=== PATIENT | female | born 1925 | race Caucasian/White ===

== ENCOUNTER → 2017-01-03 | Outpatient (CLI) | payer MEDICARE, BC ==
[~2017-01-03] MED LIST: BACTRIM DS TABL1 TA1 PO; BP PILL; CLONAZEPAM0.5 MG PO; DITROPAN XL10 MG PO; HYDROCODON-ACE1 EAC9 PO; INDERAL20 MG PO; LIPITOR PO; LIPITOR20 MG PO; MULTIVITAMIN1 UDCAP PO; REMERON SOLTAB15 M1 PO; WELLBUTRIN SR150 M1 PO
--- NOTE | ~2017-01-03 | CR278 ---
[facility] A Service of [facility] & [facility] RADIOLOGY TEXT RESULTS PATIENT: KUSHAL GOODWIN LOCATION: [facility] : [birth year] UNIT #: [id number] AGE: [address]: Samantha Ellis MD SEX: F ORDER DR: [id number] [facility] [address]. [place], [place] [address] [id number] O MR#: [id number] Acc #: [id number] NAME: KUSHAL GOODWIN : 1925 SEX: F STUDY DATE/TIME: 01/03/2017 15:17 UNIT: [facility] ROOM: STUDY DESCRIPTION: CR Wrist 2 View Lt Attending Physician: Samantha Ellis M.D. Referring Physician: Samantha Ellis M.D. Ordering Physician: Samantha Ellis M.D. Primary Care Physician: Samantha Ellis M.D. MEDICAL IMAGING REPORT This report is preliminary unless electronic signature is present EXAM Left wrist INDICATION Cellulitis of the left hand. Swelling and redness for 2 weeks. FINDINGS Three views of the left wrist without comparison. There is some generalized soft tissue swelling over the dorsum of the wrist. There is no fracture or dislocation. There is significant osteoarthritis of the wrist particularly along the radial margin. IMPRESSION 1. Generalized soft tissue swelling at the wrist. 2. 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 Dictated by... Pito Desai M.D. THIS IS AN ELECTRONICALLY VERIFIED REPORT Pito Desai M.D. at 01/04/2017 2:53 PM Luis TD: 01/04/2017 08:51 JOB #: [id number] MEDICAL IMAGING REPORT Page 1 of 1 COPY
== END | disposition home or self-care (01) ==
LOC: CRAD 14:50
DX: L03.114 Cellulitis of left upper limb (principal); M19.032 Primary osteoarthritis, left wrist; M79.89 Other specified soft tissue disorders
CPT/HCPCS: 73100

== ENCOUNTER 2017-02-05 16:43 | Emergency (ER) | payer MEDICARE, BC ==
[~2017-02-05] VITALS: Ht 162.6 cm; Wt 53.5 kg
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
[~2017-02-05 16:43] MED LIST changes: -CLONAZEPAM0.5 MG PO; -DITROPAN XL10 MG PO; -HYDROCODON-ACE1 EAC9 PO; -INDERAL20 MG PO; -LIPITOR20 MG PO; -REMERON SOLTAB15 M1 PO; -WELLBUTRIN SR150 M1 PO
[2017-02-05] MEDS ORDERED: CLONAZEPAM0.5 MG PO (16:57)
[2017-02-05] MEDS ORDERED: DITROPAN XL10 MG PO (16:57)
[2017-02-05] MEDS ORDERED: WELLBUTRIN SR150 M1 PO (16:58)
[2017-02-05] MEDS ORDERED: LIPITOR20 MG PO (16:58)
[2017-02-05] MEDS ORDERED: REMERON SOLTAB15 M1 PO (16:58)
[2017-02-05] MEDS ORDERED: HYDROCODON-ACE1 EAC9 PO (16:59)
[2017-02-05] MEDS ORDERED: INDERAL20 MG PO (16:59)
== END 2017-02-05 18:54 | disposition home or self-care (01) ==
LOC: SED 16:43
DX: S82.831A Other fracture of upper and lower end of right fibula, initial encounter for closed fracture (principal); S70.01XA Contusion of right hip, initial encounter; S40.011A Contusion of right shoulder, initial encounter; I10 Essential (primary) hypertension; Z79.899 Other long term (current) drug therapy; Y92.488 Other paved roadways as the place of occurrence of the external cause; V89.9XXA Person injured in unspecified vehicle accident, initial encounter
CPT/HCPCS: 29405; 70450; 71020; 72072; 72100; 72125; 73030; 73502; 73610; 99284